=== PATIENT | female | born 1945 | race Caucasian/White ===

== ENCOUNTER 2019-11-25 15:10 | Emergency (ER) | payer MEDICARE, SELFPAY ==
--- NOTE | ~2019-11-25 | XR_ITS ---
EXAMINATION: XR chest 2V EXAM DATE: 11/25/2019 16:04 INDICATION: Shortness of breath, wheezing, cough, COPD. Symptoms 3 weeks. TECHNIQUE: Frontal and lateral projections of the chest obtained and reviewed. There is no prior brad dy for comparison. FINDINGS: The lungs are clear. There are no pleural effusions. The cardiomediastinal silhouette is within normal limits. There is no pneumothorax suspected. The bones and soft tissues are unremarkab le. There is moderate chronic hyperinflation. Lumbar fusion hardware. IMPRESSION: 1. No acute cardiopulmonary findings. 2. Hyperinflation. Reviewed, dictated and finalized at location A. ER OPERATOR
[2019-11-25 15:25] VITALS: BP 104/62; PULSE 77; RESP 22; TEMP 36.3; O2SAT 90
--- NOTE | 2019-11-25 16:51 | ED.URI ---
HPI - URI/Sore Throat General Chief Complaint: Upper Respiratory Infection Stated Complaint: wheezing Time Seen by Provider: 11/25/19 16:00 Source: patient and RN notes reviewed Mode of arrival: ambulatory Limitations: no limitations History of Present Illness HPI Narrative: 74-year-old female who presents to [facility] with complaints of increasing cough and wheezing for the past 3 weeks patient states she called her doctor on Wednesday and he placed her on steroid and Doxycycline which she states is taking as directed. Patent states that she does have a nebulizer at home but she has not taken any treatments today. Patient is using oxygen per nasal cannula at 3 L per nasal cannula. Patient has diminished breath sounds present with scattered wheezing present, SAO2 90% with oxygen at 3 liters, denies any acute increase in her dyspnea. Patient has bipap machine she wears at night. MD elicited complaint: cough and other (wheezing) Pertinent past history: pneumonia Onset (ago): week(s) (3 weeks with increase symptoms the past week) Consistency: progressively worsening Severity: moderate Description of mucous: clear Able to tolerate fluids by mouth: Yes Exacerbating factors: exertion and deep breaths Relieving factors: nothing Associated symptoms: cough, shortness of breath and other (wheezing) Treatments prior to arrival: other (oxygen, antibiotic and steroid) Related Data Home Medications Medication Instructions Recorded Confirmed Bi-Pap 11/25/19 Oxygen 3 l EACHNARE DAILY 11/25/19 acetaminophen 650 mg PO QAM 11/25/19 11/25/19 albuterol sulfate 2 puff INHALATION QID PRN 11/25/19 11/25/19 albuterol sulfate 2.5 mg INHALATION Q6H PRN 11/25/19 11/25/19 ambrisentan [Letairis] 10 mg PO DAILY 11/25/19 11/25/19 aripiprazole 5 mg PO DAILY 11/25/19 11/25/19 aspirin 81 mg PO DAILY 11/25/19 11/25/19 doxycycline monohydrate 100 mg PO DAILY 11/25/19 11/25/19 duloxetine 120 mg PO DAILY 11/25/19 11/25/19 escitalopram oxalate 40 mg PO DAILY 11/25/19 11/25/19 fluticasone propion-salmeterol 2 puff INHALATION BID 11/25/19 11/25/19 [Advair HFA] furosemide 20 mg PO DAILY 11/25/19 11/25/19 gabapentin 300 mg PO HS 11/25/19 11/25/19 levothyroxine 50 mcg PO DAILY 11/25/19 11/25/19 loratadine-pseudoephedrine 1 tablet PO Q12H 11/25/19 11/25/19 [Claritin-D 12 Hour] losartan 25 mg PO DAILY 11/25/19 11/25/19 metoprolol succinate [Toprol XL] 50 mg PO DAILY 11/25/19 11/25/19 montelukast 10 mg PO HS 11/25/19 11/25/19 prednisone 20 mg PO BID 11/25/19 11/25/19 simvastatin 10 mg PO HS 11/25/19 11/25/19 spironolactone 12.5 mg PO DAILY 11/25/19 11/25/19 Allergies Allergy/AdvReac Type Severity Reaction Status Date / Time Calcium Channel Blocking Allergy Unknown GUM Verified 11/25/19 15:52 Agent Dilt SWELLING hydromorphone Allergy Unknown IRRITABILIT Verified 11/25/19 15:52 Y iodine Allergy Unknown Rash Verified 11/25/19 15:52 NSAIDS (Non-Steroidal Allergy Unknown KIDNEY Verified 11/25/19 15:52 Anti-Inflamma PROBLEMS tramadol Allergy Unknown N/V Verified 11/25/19 15:52 codeine AdvReac Unknown Nausea and Verified 11/25/19 15:52 Vomiting Review of Systems Review of Systems: Narrative: CONSTITUTIONAL: Denies fever, chills, or sweats. EYES: Denies visual changes, redness, or discharge. ENT: Denies rhinorrhea, congestion, sore throat, or otalgia. CARDIOVASCULAR: Denies chest pain, palpitations,bilateral lower extremity lymphadema RESPIRATORY:positive cough, wheezing or dyspnea. GASTROINTESTINAL: Denies abdominal pain, nausea, vomiting, or diarrhea. GENITOURINARY: Denies dysuria or hematuria. SKIN: Denies rash or itching. MUSCULOSKELETAL: Denies back pain, joint pain, or myalgia. NEUROLOGIC: Denies headache, numbness, or weakness. PSYCHIATRIC: Denies anxiety or depression. All systems reviewed & are unremarkable except as noted in HPI and below PMFSH Past Medical History Medical History (Updated 11/28/19 @ 15:12 by Indu Flores NP) Acquire
[2019-11-25] MEDS: IPRATROPIUM BR 0.02% INH SOLN 0.5 MG/2.5 ML VIAL INHALATION (17:06)
[2019-11-25] MEDS: ALBUTEROL SULFATE NEB 2.5 MG/3 ML INH INHALATION (17:06)
== END 2019-11-25 17:45 | disposition home or self-care (01) ==
PROVIDERS: Emergency Provider Registered Nurse
DX: J44.1 Chronic obstructive pulmonary disease with (acute) exacerbation (principal); J40 Bronchitis, not specified as acute or chronic; J06.9 Acute upper respiratory infection, unspecified; E11.42 Type 2 diabetes mellitus with diabetic polyneuropathy; E78.5 Hyperlipidemia, unspecified; I10 Essential (primary) hypertension; Z87.891 Personal history of nicotine dependence
CPT/HCPCS: 71046; 94640; 99213; G0463

== ENCOUNTER 2022-12-24 14:45 | Emergency (ER) | payer MEDICARE, SELFPAY ==
[2022-12-24 14:57] VITALS: BP 144/84; PULSE 87; RESP 18; TEMP 35.8; O2SAT 91
--- NOTE | 2022-12-24 15:05 | ED.URI ---
HPI - URI/Sore Throat General Chief Complaint: Upper Respiratory Infection Stated Complaint: Sore Throat Source: patient and RN notes reviewed History of Present Illness HPI Narrative: 77-year-old male presents to urgent care with complaints of a sore throat that started last night. Patient states the pain worsens with swallowing. Patient denies any fevers, chills, chest pain, shortness of breath vomiting, ear pain, or congestion. Patient has not taken anything for her sore throat. Some parts of this dictation were generated by voice recognition software and may contain typographical and/or grammatical inaccuracies. Related Data Home Medications Medication Instructions Recorded Confirmed Oxygen 3 l EACH NARE DAILY 11/25/19 acetaminophen 650 mg 650 mg PO QAM 11/25/19 11/25/19 tablet,extended release albuterol sulfate 2.5 mg/3 mL 2.5 mg inhalation Q6H PRN 11/25/19 11/25/19 (0.083 %) solution for nebulization Shortness Of Breath Or Wheezing albuterol sulfate 90 mcg/actuation 2 puff inhalation QID PRN 11/25/19 11/25/19 aerosol inhaler Shortness Of Breath Or Wheezing ambrisentan 10 mg tablet (Letairis) 10 mg PO DAILY 11/25/19 11/25/19 aripiprazole 5 mg tablet 5 mg PO DAILY 11/25/19 11/25/19 aspirin 81 mg tablet,delayed 81 mg PO DAILY 11/25/19 11/25/19 release duloxetine 60 mg capsule,delayed 120 mg PO DAILY 11/25/19 11/25/19 release escitalopram oxalate 20 mg tablet 40 mg PO DAILY 11/25/19 11/25/19 fluticasone propionate 115 2 puff inhalation BID 11/25/19 11/25/19 mcg-salmeterol 21 mcg/actuation HFA inhaler (Advair HFA) gabapentin 300 mg capsule 300 mg PO HS 11/25/19 11/25/19 levothyroxine 50 mcg tablet 50 mcg PO DAILY 11/25/19 11/25/19 losartan 25 mg tablet 25 mg PO DAILY 11/25/19 11/25/19 metoprolol succinate 50 mg 50 mg PO DAILY 11/25/19 11/25/19 tablet,extended release 24 hr (Toprol XL) montelukast 10 mg tablet 10 mg PO HS 11/25/19 11/25/19 simvastatin 10 mg tablet 10 mg PO HS 11/25/19 11/25/19 spironolactone 25 mg tablet 12.5 mg PO DAILY 11/25/19 11/25/19 alendronate 70 mg tablet 70 mg PO DAILY 12/24/22 12/24/22 apixaban 5 mg tablet (Eliquis) 5 mg PO BID 12/24/22 12/24/22 atorvastatin 40 mg tablet mg 12/24/22 budesonide 160 mcg-glycopyr 9 inh inhalation 12/24/22 mcg-formot 4.8 mcg/actuation HFA inhaler (Breztri Aerosphere) calcium carbonate 600 mg calcium mg 12/24/22 12/24/22 (1,500 mg) tablet ferrous sulfate 325 mg (65 mg mg 12/24/22 12/24/22 iron) tablet furosemide 40 mg tablet (Lasix) 40 mg PO DAILY 12/24/22 12/24/22 lamotrigine 100 mg tablet mg 12/24/22 Allergies Allergy/AdvReac Type Severity Reaction Status Date / Time Calcium Channel Blocking Allergy Unknown GUM Verified 12/24/22 15:06 Agent Dilt SWELLING hydromorphone Allergy Unknown IRRITABILIT Verified 12/24/22 15:06 Y iodine Allergy Unknown Rash Verified 12/24/22 15:06 NSAIDS (Non-Steroidal Allergy Unknown KIDNEY Verified 12/24/22 15:06 Anti-Inflamma PROBLEMS tramadol Allergy Unknown N/V Verified 12/24/22 15:06 codeine AdvReac Unknown Nausea and Verified 12/24/22 15:06 Vomiting Review of Systems Review of Systems: CONSTITUTIONAL: Denies fever, chills, or sweats. EYES: Denies visual changes, redness, or discharge. ENT: sore throat CARDIOVASCULAR: Denies chest pain, palpitations, or edema. RESPIRATORY: Denies cough or dyspnea. GASTROINTESTINAL: Denies abdominal pain, nausea, vomiting, or diarrhea. GENITOURINARY: Denies dysuria or hematuria. SKIN: Denies rash or itching. MUSCULOSKELETAL: Denies back pain, joint pain, or myalgia. NEUROLOGIC: Denies headache, numbness, or weakness. Pertinent positives per HPI. [facility] Past Medical History Medical History (Updated 12/24/22 @ 16:20 by Marilou Eduardo, [employer]) Acquired lymphedema of lower extremity Anxiety and depression Diabetes Hyperlipemia Hypertension Hypothyroid Peripheral neuropathy Pulmonary hypertension Surgical History Surgical His
== END 2022-12-24 16:20 | disposition home or self-care (01) ==
PROVIDERS: Emergency Provider Nurse Practitioner Family
DX: J02.9 Acute pharyngitis, unspecified (principal); Z20.822 Contact with and (suspected) exposure to COVID-19; Z87.891 Personal history of nicotine dependence; E78.5 Hyperlipidemia, unspecified; I10 Essential (primary) hypertension; E03.9 Hypothyroidism, unspecified; E11.42 Type 2 diabetes mellitus with diabetic polyneuropathy; I27.20 Pulmonary hypertension, unspecified; F41.9 Anxiety disorder, unspecified; F32.A Depression, unspecified
CPT/HCPCS: 87081; 87426; 87880; 99203; C9803; G0463